=== PATIENT | male | born 1955 | race Caucasian/White ===

== ENCOUNTER 2016-10-04 20:18 | Emergency (ER) | payer OTHER ==
[2016-10-04 20:32] VITALS: BP 139/80
--- NOTE | 2016-10-04 21:52 | PROVIDER DOCUMENTATION ---
HPI-Rash/Wound/ReCheck <Jameson Vergara - Last Filed: 10/04/16 21:47> - General Source: patient - History of Present Illness-Dermatology Location: reports: generalized Quality: reports: itchy. denies: burning Severity: reports: mild Onset/Duration: reports: other (2 WEEKS) Timing: reports: still present Context/Associated Symptoms: reports: change in skin texture, rash Identifiable cause?: No Exposure: reports: unknown cause Modifying Factors: improves with: scratching Locality of Occurance: Home Similar Symptoms Previously?: No Recently seen or treated by another doctor?: No <Vilma Cleveland - Last Filed: 10/04/16 23:01> - General Chief Complaint: Rash Stated Complaint: MALE /RASH Time Seen by Provider: 10/04/16 20:54 Allergies/Adverse Reactions: Allergies Allergy/AdvReac Type Severity Reaction Status Date / Time No Known Allergies Allergy Verified 10/04/16 20:32 Home Medications: Home Medication List Medication Instructions Recorded Confirmed Last Taken Type Bacitracin Ointment 1 applicatn TOP BID #1 tube 10/04/16 Unknown Rx Hydrocortisone 2.5% Cream 1 applicatn [place] PRN PRN #1 tube 10/04/16 Unknown Rx [Anusol-Hc Cream] Nystatin Powder [Mycostatin Powder] 1 applicatn TOP BID #1 bottle 10/04/16 Unknown Rx - History of Present Illness-Dermatology Nature of Presenting Problem: PT IS A 60YOM PRESENTING TO THE ED C/O RASH. PT IS IN A LOCAL INTERMEDIATE FOR MENTAL DEFICIENCIES. PT HAS HAD A RASH ON BILATERAL HIPS FOR ABOUT 1 1/2 WEEKS, ABD RASH FOR 2 WEEKS, AND A POSSIBLE HEMORRHOID. PTS RASH ON ABD IS YEAST IN NATURE BUT THE RASH TO HIPS ISN'T A RASH JUST LOOKS LIKE CLAW CHOW (Vilma Cleveland) Review of Systems - Adult - REVIEW OF SYSTEMS - ADULT Constitutional: reports: no symptoms reported Eyes: reports: no symptoms reported Ears, Nose, Mouth & Throat: reports: no symptoms reported Cardiovascular: reports: no symptoms reported Respiratory: reports: no symptoms reported Gastrointestinal: reports: no symptoms reported Genitourinary: reports: see HPI, other (SMALL HEMRRHOID) Musculoskeletal: reports: no symptoms reported Integumentary: reports: see HPI, hives, itching, rash. 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 Major Childhood Illnesses: reports: denies history Cardiovascular: reports: denies history Respiratory: reports: denies history Gastrointestinal: reports: denies history Obstetrical/Gynecological: reports: denies history Genitourinary: reports: denies history Musculoskeletal: reports: denies history Neurological: reports: denies history Endocrine/Immune: reports: denies history Other Conditions: reports: denies history - IMMUNIZATION STATUS Childhood Immunizations: See Nurse Assessment Flu Vaccine: See Nurse Assessment - FAMILY HISTORY Family History: reviewed, not pertinent <Vilma Cleveland - Last Filed: 10/04/16 23:01> Physical Exam-General - PHYSICAL EXAM-ADULT Initial Vital Signs Reviewed: Yes - CONSTITUTIONAL General Appearance: appears well, mild distress, anxious. negative: alert - EYES Eyes: PERRL/EOMI, pink conjunctivae, fundi clear, no AV nicking - HEAD, EARS, NOSE, MOUTH & THROAT HENMT: normocephalic/atraumatic, moist mucous membranes, normal ENT inspection, TMs normal, pharynx normal - NECK Neck: non-tender, full range of motion, supple, normal inspection - RESPIRATORY Respiratory: chest non-tender, lungs clear, normal breath sounds, no pleuratic chest pain, no respiratory distress, no accessory muscle use - CARDIOVASCULAR Cardiovascular: normal peripheral pulses, regular rate, rhythm, no edema, no gallop, no JVD, no murmur - CHEST (BREASTS) Chest/Breast: deferred - GASTROINTESTINAL (ABDOMEN) Abdominal Exam: normal bowel sounds, non tender, soft, no organomegaly, no pulsatile mass - GENITOURINARY Rectal Exam: hemorrhoids Hemoccult Exam: deferred - LYMPHATIC Lymphatic: no adenopathy - MUSCULOSKELETAL Back Exam: normal inspection, no CVA tenderness, no vertebral tenderness Extremity: normal range of motion, non-tender, normal gait, normal inspection, no pedal edema, no calf tenderness, normal capillary refill, pelvis stable - SKIN Integumentary: normal turgor, warm/dry, rash - NEUROLOGIC 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-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 nml as tested, grossly normal, no motor/sensory deficits - PSYCHIATRIC Psych/Mental Status: normal mood/affect, normal thought content, normal thought process, oriented x 3 <Vilma Cleveland - Last Filed: 10/04/16 23:01> Progress <Jameson Vergara - Last Filed: 10/04/16 21:47> <Vilma Cleveland - Last Filed: 10/04/16 23:01> - PLAN OF CARE/RESULTS Progress/Plan/Lab Results: Vital Signs - 24 hr 10/04/16 20:27 Temperature 98.4 F Pulse Rate 100 H Respiratory 20 Rate Blood Pressure 139/80 O2 Sat by Pulse 100 Oximetry (Vilma Cleveland) Departure - Departure Time of Disposition Order: 21:47 Certified Medical Emergency: Emergent <Jameson Vergara - Last Filed: 10/04/16 21:47> - Departure Time of Disposition Order: 23:01 Certified Medical Emergency: Emergent <Vilma Cleveland - Last Filed: 10/04/16 23:01> - Departure DIAGNOSIS: Candidiasis, Urticaria, Acute hemorrhoid Disposition: HOME 01 Condition: Stable Additional Instructions: ED Follow Up Instructions: You have been treated by a care provider in the Emergency Department. These instructions are being provided to you so you can have an understanding of how to care for yourself upon discharge. Upon discharge from the Emergency Department, you are responsible for making arrangements for follow-up care by a physician of your choice. Take all prescribed medications as directed. Return to the Emergency Department immediately for any new or worsening symptoms. You may call the Physician Referral phone number at [phone] to obtain a list of Physicians who are taking new patients. Prescriptions: Hydrocortisone 2.5% Cream [Anusol-Hc Cream] 1 applicatn [place] PRN PRN #1 tube PRN Reason: Pain Bacitracin Ointment 1 applicatn TOP BID #1 tube Nystatin Powder [Mycostatin Powder] 1 applicatn TOP BID #1 bottle Referrals: Whitney Noel [Primary Care Provider] - Instructions: Yeast Infection of the Skin, [id number], Hydrocortisone skin cream, ointment, lotion, or solution, Nystatin topical powder, Bacitracin skin ointment, Hemorrhoids Attestation - Scribe Verification/Attestation Scribe:: Vilma Cleveland Acting as Scribe for:: Jameson Vergara Scribe documention review:: This chart was documented by a scribe and accurately reflects the service the provider performed and the decisions made by the provider. <Vilma Cleveland - Last Filed: 10/04/16 23:01> Physician Attestation - Physician Attestation I, the provider, attest to the following statement:: Kenny Romero Physician documentation Attestation:: This documentation recorded by the scribe accurately reflects the service I personally performed and the decisions made by me. <Vilma Cleveland - Last Filed: 10/04/16 23:01>
== END 2016-10-04 22:08 | disposition home or self-care (01) ==
LOC: P.ED 20:18
DX: B37.2 Candidiasis of skin and nail (principal); L50.9 Urticaria, unspecified; K64.9 Unspecified hemorrhoids; R21 Rash and other nonspecific skin eruption; L29.9 Pruritus, unspecified; R23.4 Changes in skin texture; F79 Unspecified intellectual disabilities
CPT/HCPCS: 99282